=== PATIENT | male | born 2000 | race African-American/Black ===

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

== ENCOUNTER 2019-02-10 14:03 | Emergency (ER) | payer SELFPAY ==
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
[2019-02-10 15:17] LABS: APPEARANCE,URINE CLEAR; BILIRUBIN,URINE NEGATIVE (NEGATIVE); COLOR,URINE YELLOW; GLUCOSE, URINE NEGATIVE (NEGATIVE); KETONES,URINE NEGATIVE (NEGATIVE); LEUKOCYTE ESTERASE,URINE NEGATIVE (NEGATIVE); NITRITE,URINE NEGATIVE (NEGATIVE); PROTEIN,URINE NEGATIVE (NEGATIVE); URINE SPECIFIC GRAVITY 1.028; UROBILINOGEN,URINE NEGATIVE mg/dL (<2.0)
[2019-02-10 15:25] LABS: ALKALINE PHOSPHATASE 53 U/L (38-126); ANION GAP 12 (5-19); ASPARTATE AMINO TRANSFERASE 34 U/L (17-59); BILIRUBIN,DIRECT 0.1 mg/dL (0.0-0.4); BLOOD UREA NITROGEN 20 mg/dL (7-20); CALCIUM 10.4 mg/dL (8.4-10.2); CARBON DIOXIDE 27 mmol/L (22-30); CHLORIDE 105 mmol/L (98-107); GLUCOSE 79 mg/dL (75-110); POTASSIUM 4.6 mmol/L (3.6-5.0); TOTAL PROTEIN 8.3 g/dL (6.3-8.2)
[2019-02-10 15:26] LABS: ACETAMINOPHEN < 10 ug/mL (10-30); ALCOHOL < 10 mg/dL (NONE DETECTED); SALICYLATE < 1.0 mg/dL (2.0-20.0)
[2019-02-10 15:31] LABS: URINE AMPHETAMINES SCREEN NEGATIVE; URINE BARBITURATES SCREEN NEGATIVE; URINE BENZODIAZEPINES SCREEN NEGATIVE; URINE COCAINE SCREEN NEGATIVE; URINE MARIJUANA (THC) SCREEN UNCONFIRMED POSITIVE; URINE METHADONE SCREEN NEGATIVE; URINE PHENCYCLIDINE SCREEN NEGATIVE
--- NOTE | 2019-02-10 15:42 | ER Document Report ---
ED General - General Mode of Arrival: Ambulatory TRAVEL OUTSIDE OF THE [place] IN LAST 30 DAYS: No - HPI Onset: Yesterday - Mom states the pt. stated acting in a bizarre manner yesterday which has continued into today. He has not had mental health issues in the past. He denies SI/HI <SHARLENE WEEKS - Last Filed: 02/10/19 15:36> <MELANY RICKS - Last Filed: 02/11/19 09:25> <MONTANA STROUD - Last Filed: 02/11/19 09:46> - General Chief Complaint: Altered Mental Status Stated Complaint: ABNORMAL BEHAVOIR Time Seen by Provider: 02/10/19 14:14 Primary Care Provider: [facility] [Outside] - Follow up as needed AWA CASTANON MD [Primary Care Provider] - Follow up as needed - Related Data Allergies/Adverse Reactions: No Known Allergies Allergy (Verified 02/10/19 14:04) Past Medical History - General Information source: Relative - Social History Smoking Status: Unknown if Ever Smoked Frequency of alcohol use: None Drug Abuse: None Family History: Reviewed & Not Pertinent Patient has suicidal ideation: No Patient has homicidal ideation: No Pulmonary Medical History: Reports: Hx Asthma Renal/ Medical History: Denies: Hx Peritoneal Dialysis Past Surgical History: Reports: Hx Cardiac Surgery - mother unable to recall - Immunizations Immunizations up to date: Yes Hx Diphtheria, Pertussis, Tetanus Vaccination: Yes <SHARLENE WEEKS - Last Filed: 02/10/19 15:36> Review of Systems - Review of Systems Constitutional: No symptoms reported EENT: No symptoms reported Cardiovascular: No symptoms reported Respiratory: No symptoms reported Gastrointestinal: No symptoms reported Musculoskeletal: No symptoms reported Neurological/Psychological: See HPI - psychosis -: Yes All other systems reviewed and negative <SHARLENE WEEKS - Last Filed: 02/10/19 15:36> Physical Exam - General General appearance: Appears well In distress: None - HEENT Pupils: PERRL Mucous membranes: Normal Pharynx: Normal Neck: Normal - Respiratory Respiratory status: No respiratory distress Breath sounds: Normal - Cardiovascular Rhythm: Regular Heart sounds: Normal auscultation - Abdominal Inspection: Normal Tenderness: Nontender - Extremities General upper extremity: Normal inspection General lower extremity: Normal inspection - Neurological Neuro grossly intact: Yes Cognition: Normal Orientation: AAOx4 Speech: Normal Motor strength normal: LUE, RUE, LLE, RLE Sensory: Normal <SHARLENE WEEKS - Last Filed: 02/10/19 15:36> - Vital signs Vitals: Temp Pulse Resp BP Pulse Ox 98.7 F 80 14 134/87 H 98 02/10/19 14:22 02/10/19 14:22 02/10/19 14:22 02/10/19 14:22 02/10/19 14:22 Course - Laboratory Result Diagrams: 02/10/19 14:33 02/10/19 14:33 - EKG Interpretation by Pa EKG shows normal: Sinus rhythm Rate: Normal Rhythm: NSR - nsr without acute change <SHARLENE WEEKS - Last Filed: 02/10/19 15:36> - Laboratory Result Diagrams: 02/10/19 16:08 02/10/19 14:33 <MELANY RICKS - Last Filed: 02/11/19 09:25> - Laboratory Result Diagrams: 02/10/19 16:08 02/10/19 14:33 <MONTANA STROUD P - Last Filed: 02/11/19 09:46> - Re-evaluation Re-evalutation: 02/10/19 15:41 he is currently being evaluated by [facility] (SHARLENE WEEKS) - Vital Signs Vital signs: Temp Pulse Resp BP Pulse Ox 98.3 F 84 16 112/70 98 02/11/19 06:47 02/11/19 06:47 02/11/19 06:47 02/11/19 06:47 02/11/19 06:47 - Laboratory Laboratory results interpreted by ky: 02/10/19 02/10/19 14:33 14:33 Calcium 10.4 H Total Protein 8.3 H Urine Ascorbic Acid 20 H Salicylates < 1.0 L Acetaminophen < 10 L Discharge <SHARLENE WEEKS - Last Filed: 02/10/19 15:36> <MELANY RICKS - Last Filed: 02/11/19 09:25> <MONTANA STROUD P - Last Filed: 02/11/19 09:46> - Discharge Clinical Impression: Unspecified psychosis Qualifiers: Psychosis type: unspecified psychosis type Qualified Code(s): F29 - Unspecified psychosis not due to a substance or known physiological condition Condition: Stable Disposition: HOME, SELF-CARE Additional Instructions: You have been evaluated both medical and behavioral health teams. Your family would like to assume your care. You provided a local resource list of area providers including mobile crisis contact information. Please return if new symptoms arise. Follow-up with your previously scheduled appointment on Sunday with your provider. Altered Mental Status An altered mental status is a change in the normal functioning of the brain. This alteration of function can range from minor decreased brain function with some forgetfulness and confusion to complete loss of consciousness and coma. There are many possible causes of an altered mental status and include brain injuries such as trauma or strokes, problems with oxygen supply to the brain, fever and infections of the brain and/or elsewhere in the body, metabolic abnormalities such as low or high blood sugar, overdoses or excessive medication ingestion, and mental and psychiatric illnesses. Sometimes the altered mental status resolves and a definite cause is not determined. If a cause for your altered mental status was found, it has likely been corrected. Your evaluation has not shown any condition that requires that you be admitted to the hospital. It is believed that you are safe to leave and re turn to your home. If you have a return of your symptoms, you should return for re-evaluation. Prescriptions: Olanzapine [Zyprexa 2.5 Mg Tablet] 2.5 mg PO BID #10 tablet Referrals: AWA CASTANON MD [Primary Care Provider] - Follow up as needed [facility] [Outside] - Follow up as needed
[2019-02-10 16:22] LABS: ABSOLUTE EOSINOPHILS # (AUTO) 0.2 10^3/uL (0.0-0.6); ABSOLUTE LYMPHOCYTES (AUTO) 1.1 10^3/uL (0.5-4.7); ABSOLUTE MONOCYTES (AUTO) 0.9 10^3/uL (0.1-1.4); ABSOLUTE NEUT (AUTO) 4.4 10^3/uL (1.7-8.2); BASOPHILS % (AUTO) 0.5 % (0-2); EOSINOPHILS % (AUTO) 2.9 % (0-6); HEMATOCRIT 46.7 % (37.9-51.0); HEMOGLOBIN 15.5 g/dL (13.5-17.0); LYMPHOCYTES % (AUTO) 17.3 % (13-45); MEAN CORPUSCULAR HEMOGLOBIN 28.3 pg (27.0-33.4); MEAN CORPUSCULAR HGB CONC 33.3 g/dL (32.0-36.0); MEAN CORPUSCULAR VOLUME 85 fl (80-97); MONOCYTES % (AUTO) 12.9 % (3-13); PLATELET COUNT 187 10^3/uL (150-450); RED CELL DISTRIBUTION WIDTH 13.5 % (11.5-14.0); SEGMENTED NEUTROPHILS % (AUTO) 66.4 % (42-78); TOTAL CELLS COUNTED % (AUTO) 100 %; WHITE BLOOD COUNT 6.6 10^3/uL (4.0-10.5)
[2019-02-10] MEDS ORDERED: CHLORPROMAZINE HCL 50 MG TABLET PO SCH (16:30)
[2019-02-10] MEDS ORDERED: LORAZEPAM 1 MG TABLET PO ONE (20:10)
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
--- NOTE | 2019-02-11 08:14 | EKG REPORT ---
SEVERITY:- NORMAL ECG - SINUS RHYTHM : Confirmed by: Ana Luz MD 11-Feb-2019 08:13:23
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
[2019-02-11 09:59] VITALS: BP 118/78
[2019-02-11] MEDS ORDERED: BENZTROPINE MESYLATE 1 MG TABLET PO SCH (10:00)
== END 2019-02-11 09:59 | disposition home or self-care (01) ==
LOC: ER 14:03
DX: F29 Unspecified psychosis not due to a substance or known physiological condition (principal); R41.82 Altered mental status, unspecified
CPT/HCPCS: 36415; 80053; 80307; 81001; 84443; 85025; 93005; 93010; 99285